=== PATIENT | female | born 1940 | race Caucasian/White ===

== ENCOUNTER 2019-11-27 12:15 | Inpatient (IN) | payer MEDICARE ==
[2019-11-27 13:42] LABS: BASOPHILS 0.3 % (0-2); HEMATOCRIT 39.6 % (36.0-48.0); HEMOGLOBIN 12.2 g/dL (12-16); IMMATURE GRANULOCYTES 0.3 % (0-5); MCH 27.3 pg (26.0-34.0); MCHC 30.8 g/dL (31.0-37.0); MCV 88.6 fL (80.0-100.0); MEAN PLATELET VOLUME 10.3 fL (7.4-10.4); MONOCYTES 5.8 % (2-11); NEUTROPHILS 52.6 % (40-80); PLATELET COUNT 176 10x3/uL (130-400); RBC 4.47 10x6/uL (4.00-5.40); RDW 15.1 % (11.5-14.5); WBC 6.2 10x3/uL (4.8-10.8)
[2019-11-27 13:48] LABS: APTT 28.2 SECONDS (22.8-39.4); INR 0.94 (0.85-1.17); PROTIME 12.5 SECONDS (11.6-15.0)
[2019-11-27 13:49] LABS: CALC OSMOLALITY 282 mosm/kg (275-300); CALCIUM 9.1 mg/dL (8.5-10.1); CHLORIDE - SERUM 105 mmol/L (98-107); CREATININE - SERUM 0.8 mg/dL (0.6-1.3); GLUCOSE 104 mg/dL (74-106); POTASSIUM - SERUM 4.5 mmol/L (3.5-5.1); SODIUM 139 mmol/L (136-145); UREA NITROGEN 27 mg/dL (7-18); eGFR NON AFRICAN AMERICAN 73 mL/min (90-120)
[2019-11-27 14:05] LABS: ALBUMIN 3.4 g/dL (3.4-5.0); ALKALINE PHOSPHATASE 101 U/L (30-120); ALT (SGPT) 33 U/L (10-68); BILIRUBIN - TOTAL 0.17 mg/dL (0.2-1.3); CREATINE KINASE 72 UL (21-215); PROTEIN - SERUM 6.7 g/dL (6.4-8.2); T4 THYROXINE 6.7 ug/dL (4.7-13.3); THYROID STIMULATING HORMONE 2.04 uIU/mL (0.36-3.74); TROPONIN-I < 0.017 ng/mL (0.000-0.060)
[2019-11-27 14:24] LABS: UDS - AMPHET NEGATIVE QUAL (NEGATIVE); UDS - BARB POSITIVE QUAL (NEGATIVE); UDS - BENZO NEGATIVE QUAL (NEGATIVE); UDS - COCAINE NEGATIVE QUAL (NEGATIVE); UDS - OPIATE NEGATIVE QUAL (NEGATIVE); UDS - PCP NEGATIVE QUAL (NEGATIVE); UDS - THC NEGATIVE QUAL (NEGATIVE)
[2019-11-27 14:26] LABS: BILIRUBIN NEGATIVE (NEGATIVE); GLUCOSE NEGATIVE (NEGATIVE); KETONE NEGATIVE (NEGATIVE); NITRITE POSITIVE (NEGATIVE); UROBILINOGEN NORMAL (NORMAL)
[2019-11-27 14:27] LABS: BACTERIA MANY /hpf (NEGATIVE); RED CELLS - URINE 0-5 /hpf (0-5); WHITE CELLS - URINE 25-50 /hpf (NEGATIVE)
[2019-11-27] MEDS ORDERED: ACETAMINOPHEN500 M1 PO (16:45)
[2019-11-27] MEDS ORDERED: ASPIRIN325 MG (16:46)
[2019-11-27] MEDS ORDERED: LIPITOR20 MG (16:55)
[2019-11-27] MEDS ORDERED: CENTRUM SILVER1 EAC3 (16:56)
[2019-11-27] MEDS ORDERED: CELEXA20 MG (16:57)
[2019-11-27] MEDS ORDERED: DONEPEZIL HCL10 MG (16:58)
[2019-11-27] MEDS ORDERED: DILTIAZEM 24HR120 M3 (16:58)
[2019-11-27] MEDS ORDERED: VIBRAMYCIN 100100 MG (17:09)
[2019-11-27] MEDS ORDERED: ZETIA10 MG (17:13)
[2019-11-27] MEDS ORDERED: SYNTHROID25 MCG (17:14)
[2019-11-27] MEDS ORDERED: METFORMIN HCL500 M1 (17:15)
[2019-11-27] MEDS ORDERED: TOPROL XL50 MG (17:15)
[2019-11-27] MEDS ORDERED: LOPRESSOR25 MG (17:16)
[2019-11-27] MEDS ORDERED: REMERON15 MG (17:16)
[2019-11-27] MEDS ORDERED: OMEPRAZOLE20 M1 (17:17)
[2019-11-27] MEDS ORDERED: MYSOLINE250 MG (17:18)
[2019-11-27] MEDS ORDERED: FLORAJEN3 CAPS460 MG (17:18)
[2019-11-27] MEDS ORDERED: ASCORBIC ACID500 MG (17:19)
[2019-11-27] MEDS ORDERED: CALTRATE+D3 PL1 EACH (17:20)
[2019-11-27] MEDS ORDERED: MELATONIN 3 MG1 TAB (17:20)
[2019-11-27 18:22] VITALS: BP 168/76; BMI 26.3
--- NOTE | 2019-11-27 18:45 | NUR ---
PATIENT ARRIVED TO UNIT FROM [facility]. PT ADMITTED DUE TO STATING SHE WAS FORGETTING THINGS, MEMORY LOSS, NIGHTMARES AND CONFUSION. VITALS SIGNS: 97.0, B/P: 168/76, P: 66, R: 18 AND 98%. WEIGHT: 148.6. PT AMBUALTES WITH A WALKER. BELONGINGS INVENTORY. NO ACUTE DISTRESS NOTED. PT DISORIENTED AND CONFUSED. PASSCODE: 1254. DIABETIC DIET.
[2019-11-27 19:07] LABS: CHOL - HDL RATIO 1.9 ratio (2.3-4.1); LDL-HDL RATIO 0.7 ratio (1.5-3.5)
[2019-11-27 20:41] VITALS: BP 150/79
--- NOTE | 2019-11-27 22:22 | NUR ---
B)RECEIVED PATIENT SITTING IN A CHAIR AT THE NURSES STATION WEARING A MASK OVER HER NOSE AND MOUTH. ORIENTED TO SELF AND HOSPITAL. RELATES SHE IS IN THE [facility] DUE TO "I'M FORGETFUL, MISPLACE THINGS AND BAD MEMORY. I GOT TRUE TO MY LAST NIGHT AND TOLD HIM THIS. ABOUT HIM OVER THE PHONE LAST NIGHT BECAUSE WHAT IS EXPECTED." ANXIOUS AND FREQUENTLY AT NURSES STATION ASKING THE SAME QUESTIONS. COOPERATIVE. I)ADMINISTER MEDS AND MONITOR COMPLIANCE. REORIENT NEEDED. R)MED COMPLIANT. ANXIOUS AND HAS A SHORT ATTENTION SPAN. DIFFICULTY RETAINING INFORMATION. P)CONTINUE POC AND PROVIDE SAFE ENVIRONMENT.
[2019-11-28 07:25] LABS: ANION GAP 10.5 mmol/L (8-16); BILIRUBIN - TOTAL 0.17 mg/dL (0.2-1.3); CALCIUM 8.2 mg/dL (8.5-10.1); CARBON DIOXIDE 28.8 mmol/L (21.0-32.0); CREATININE - SERUM 0.8 mg/dL (0.6-1.3); LDL-HDL RATIO 0.8 ratio (1.5-3.5); POTASSIUM - SERUM 4.3 mmol/L (3.5-5.1); PROTEIN - SERUM 5.5 g/dL (6.4-8.2); THYROID STIMULATING HORMONE 2.26 uIU/mL (0.36-3.74)
[2019-11-28 13:55] VITALS: Wt 68.7 kg
--- NOTE | 2019-11-28 14:30 | NUR ---
PT SITTING IN DINING ROOM AT TABLE SPEAKING WITH OTHER PEERS. PT CONFUSED AND DISORIENTED. PT TENDS TO REPEAT QUESTIONS AFTER STAFF ANSWERS QUESTIONS MOMENTS BEFORE. PT CONTS TO STATE SHE CANT TAKE THIS AND SHE WANTS TO GO HOME. PREVIOUS SHIFT REPORTED PT COULD NOT OPEN DOOR IN THE A.M. WHEN SHE OPENED THE DOOR PT STATED "I'M GOING TO KILL SOMEONE." TECH ASKED WHAT WAS WRONG AND COULD SHE HELP HER. PT STATED WELL I DONT KNOW. JUST FORGET I SAID THAT. PT IS COMPLIANT WITH MEDS, VITALS AND ASSESSMENTS. PT CAN MAKE NEEDS KNOWN. REDIRECT AND REORIENT PT NEEDED. WILL CONT PLAN OF CARE.
--- NOTE | 2019-11-28 16:10 | NUR ---
PATIENT WAS UPSET THINKING SHE WAS LEAVING CAUSE THE DOCTOR WAS HAVING A MEETING WITH HER IN THE HOSPITAL. NURSE ATTEMPTED TO EXPLAIN THAT HER WAS NOT IN THE HOSPITAL AT THIS TIME. SHE DID NOT UNDERSTAND WHY HE WAS NOT HERE. PT STATED "I'M SO NERVOUS." ATIVAN 0.5 MG PO GIVEN PER PRN ORDER. WILL CONT TO MONITOR.
--- NOTE | 2019-11-28 18:01 | NUR ---
PT PRN EFFECTIVE.
--- NOTE | 2019-11-28 22:34 | NUR ---
B) Patient is alert and oriented to self, at nurses station wanting her pocket book, demanding at times, confused, I) Administered scheduled medications as ordered, redirected as needed, R) Mediation compliant, states that she has been asking for her pocketbook for days, unaware that she arrived yesterday P) Continue plan of care.
--- NOTE | 2019-11-29 07:28 | NUR ---
PT AMBULATED TO THE DESK ASKING FOR HER WALLET. SHE STATES IT IS AT THE DESK AND I KEEP COMING UP HERE BUT THEY WONT GIVE IT TO ME." NURSE EXPLAINED HER WALLET WENT HOME WITH HER WHEN SHE ADMITTED." PT DID NOT UNDERSTAND STATING "SHE TOLD ME IT WAS LOCKED UP." NURSE PULLED INVENTORY LIST AND EXPLAINED ONLY THING IN LOCKUP IS HER SUITCASE. SHE WALKED BACK TO HER ROOM. PREVIOUS SHIFT REPORTED SHE WAS CONFUSED AND LOOKING FOR HER POCKETBOOK. PT CAN MAKE SOME NEEDS KNOWN. CONFUSED AND DISORIENTED. ALERT TO SELF ONLY. REDIRECT AND REORIENT PT NEEDED. POOR INSIGHT NOTED TO SITUATION. AMBULATES WITH WALKER. PT IS UNAWARE SHE ADMITTED DAY BEFORE YESTERDAY.
--- NOTE | 2019-11-29 10:33 | NUR ---
SPOKE WITH MR. WATTS. PASSCODE GIVEN. HE WANTED TO KNOW HOW SHE WAS DOING AT THIS TIME. NURSE EXPLAINED THIS MORNING SHE WAS LOOKING FOR HER POCKETBOOK AND COULDNT FIND IT. NURSE WENT OVER INVENTORY SHEET AND SHE DID NOT BRING IT. HER TOOK IT HOME WITH HIM. HE WANTED TO BE SURE THAT HE UNDERSTOOD THAT IT WOULD BE BETTER NOT TO CALL HER UNTIL MONDAY. NURSE EXPLAINED YES THAT IS CORRECT. CALLING MAKES HER UPSET AND ANXIOUS BECAUSE SHE THINKS IF SHE TALKS TO HIM THEN SHE CAN GO HOME. SO HE UNDERSTOOD THE REASON WHY NOT TO CALL OVER THE WEEKEND. HE SAID HE WOULD CALL BACK AND CHECK WITH STAFF LATER. THANKED NURSE.
[2019-11-29 11:05] VITALS: BP 132/66
--- NOTE | 2019-11-29 16:40 | NUR ---
SPOKE WITH MR. WATTS ABOUT PT ROOM NUMBER. HE WANTED TO BE SURE THAT SHE WAS STILL IN THE SAME ROOM. NURSE STATED THAT WAS THE CORRECT ROOM. HE ALSO STATED THAT HE WOULD BRING HER LIVING WILL PAPERWORK. HE WANTED THE PAPERWORK COPIED AND GIVEN BACK. NURSE STATED WE WOULD KEEP THE COPIES.
[2019-11-29 20:00] VITALS: BP 116/65; BP 96/57
--- NOTE | 2019-11-29 21:12 | NUR ---
B.) PT IS ALERT AND ORIENTED TO SELF AND SITUATION. SHE IS CALM AND COOPERATIVE WITH STAFF. SHE IS RECEIVED IN HER ROOM. SHE IS SELF ISOLATING AT TIMES. SHE DENIES ANY WANTS OR NEEDS AT THIS TIME. I.) PROVIDED PM MEDICATIONS PRESCRIBED. REDIRECT NEEDED. R.) COMPLIANT WITH ALL MEDICATIONS. EASY TO REDIRECT. P.) WILL CONTINUE TO MONITOR.
[2019-11-30 08:07] VITALS: BP 134/71
--- NOTE | 2019-11-30 09:47 | NUR ---
The patient is awake and oriented to person and place, she has poor insight into her situation. She said she did not have nightmares last night, but she said she thought she heard a baby crying. The plant tour guide explained to her that it was not a child it was another patient on the floor. She asked how long she would be here. Explained to her that she will be here seven to fourteen days. She said "Oh, I was told seven to ten days." Provide prescribed meds. The patient is compliant with meds. Continue POC.
[2019-11-30 10:13] VITALS: BP 134/71
--- NOTE | 2019-11-30 15:03 | NUR ---
Called the patient's spouse and asked him to bring poise pads per patient request. He brought her chocolates and explained to him that she is not allowed to have outside food or drinks.
--- NOTE | 2019-11-30 16:40 | NUR ---
The patient approached for the third time and asked "How long will I be here?" Explained again that "It is usually seven to fourteen days." She said "Oh, I was told seven to ten days." She became focused on the additional four days. Explained to her that it is in between seven and fourteen days. Asked her why she came here and she said "Well, my wants me to be here, I guess," Spoke with her for about twenty minutes and she said "Well, I am trying my best, I'm trying to be good, I just want to go home, I'd rather be home." After speaking with her it became apparent that she gets focused on something and then she thinks about it over and over. She is compulsive and she said she was surrounded by people that are sick. She is quite concerned about others germs and ed an illness. Explained to her that the other patients are not sick, they have allergies. Also looked in her room and all of her clothes are neat as a pin, her room is exact. Offered her an ativan she said she was reluctant to take any medication. Explained to her that the medication will take the edge off and she will be able to relax a little. The patient also has some forgetfulness as she repeats herself over and over not realizing. Asked her if she has heard of dementia or alzheimers. She said "Well, I have heard the word, but not in reference to myself." Explained to her that "We as the staff are monitoring her and she will see the nurse practitioners, and the Dr.'s" She said "Yes, but I'd prefer to see my own Dr." After speaking with at great length she settled and she chose to take an ativan. Asked her to give us a few days and we can help her with her situation. She said "Ok."
--- NOTE | 2019-11-30 16:49 | NUR ---
Ativan 0.5 mg po given now, will monitor. Explained to the patient that the medication may make her a little woozy, so we ask that she not try to stand up at first unless stand were standing by her. She agreed and asked me to come by her every time I saw her and tell her it's ok and to pat her shoulder. Told her that "We are here to support her."
--- NOTE | 2019-11-30 17:45 | NUR ---
The patient is still asking staff "What time is it?" Every few minutes and she is at the nurses station asking a million questions over and over. She asked if she can walk in the hallway, told her yes, then she asked if she could sit in the hallway, told her yes.
--- NOTE | 2019-11-30 20:48 | NUR ---
B.) PT IS ALERT AND ORIENTED X4. SHE IS DISTRESSED ABOUT NOT BEING ABLE TO SPEAK WITH HER . SHE REQUESTED THAT WE LET THE DAYSHIFT KNOW SHE WOULD LIKE TO SPEAK WITH HER OR DAUGHTER QUINN. SHE IS TEARFUL AND RESTLESS. I.) PROVIDED PM MEDICATIONS PRESCRIBED AND PRN 0.5MG ATIVAN PO. REDIRECT NEEDED. R.) COMPLIANT WITH ALL MEDICATIONS. EASY TO REDIRECT. P.) WILL CONTINUE TO MONITOR
--- NOTE | 2019-11-30 21:20 | NUR ---
PT IS RESTING CALMLY IN BED WITH EYES CLOSED. NO SIGNS OF DISTRESS NOTED. WILL CONTINUE TO MONITOR.
[2019-12-01 05:17] VITALS: BP 133/73
--- NOTE | 2019-12-01 08:06 | NUR ---
The patient is anxious, she keeps asking to call the police and she is worried and concerned about being here. Spoke to her and let her know she is in the hospital and changed the subject and let her know that I brought her some things to color today and she began talking to others about it, but because she worries and gets upset. Ativan 0.5 mg po provided. Redirect as needed. Continue POC.
[2019-12-01 08:24] VITALS: BP 133/80
--- NOTE | 2019-12-01 09:00 | NUR ---
The patient is calm she is conversing with staff and other patients, she is not groggy.
--- NOTE | 2019-12-01 10:00 | NUR ---
The patient's spouse brought her poise pads. Gave her a pad and put a few in her room on her bed then put the others at the nurses station.
--- NOTE | 2019-12-01 10:31 | NUR ---
The patient is coloring and having a snack.
--- NOTE | 2019-12-01 14:55 | NUR ---
The patient is beginning to get more confused and escalating and asking the same question over and over and not following the conversation. Provide Ativan 0.5 mg po, will monitor his mood.
--- NOTE | 2019-12-01 18:52 | NUR ---
REECIVED IN BEDROOM. RESTING QUIETLY WITH EYES CLOSED. RESPONDS TO VOICE. CALM AND COOPERATIVE WITH CARE AND ASSESSMENT. ENCOURAGE TO EXPRESS NEEDS. CONTINUES TO REST QUIETLY IN BEDROOM. CONTINUE PLAN OF CARE.
[2019-12-01 18:55] VITALS: BP 130/65
[2019-12-02 08:29] VITALS: BP 116/70
--- NOTE | 2019-12-02 12:00 | NUR ---
RECEIVED IN HALLWAY OUTSIDE OF NURSES STATION. CALM AND COOPERATIVE WITH CARE AND ASSESSMENT. FORGETFUL. REDIRECT AND REORIENT NEEDED. EATING AT THIS TIME. CONTINUE PLAN OF CARE.
--- NOTE | 2019-12-02 13:26 | PSY ---
PATIENT NAME:ADELIA WATTS MEDICAL RECORD: [id number] : 36 LOCATION:[facility] ADMISSION DATE: 11/27/19 ACCOUNT: [id number] PSYCHIATRIC EVALUATION DATE OF EVALUATION: 11/28/19 IDENTIFYING DATA: The patient is 78 years old and she is admitted to the hospital on a voluntary basis. CHIEF COMPLAINT: Confusion and hallucinations. HISTORY OF PRESENT ILLNESS: The patient is a very nice elderly woman who presented to the Emergency Room in the company of her . He reports that she has been confused, agitated, and actively hallucinating. The patient is oriented partially, but clearly quite confused. She is denying hallucinations and says that she has had no agitation with her . She also has clear evidence of significant short-term memory loss. She denies that she would seek to harm herself or others. PAST MEDICAL HISTORY: Significant for stroke, diabetes, hypertension, atrial fibrillation, osteoporosis and probable urinary tract infection present on admission. PAST PSYCHIATRIC HISTORY: Unknown. She says she has never been diagnosed with a dementia, yet she is taking Aricept. She minimizes her situation, saying that she just has short-term memory loss that is normal for her age. FAMILY HISTORY: Significant for hypertension. ALLERGIES: MACROBID. CURRENT MEDICATIONS: Include calcium, melatonin, aspirin, Mysoline, Remeron, Lopressor, Toprol, Glucophage, Synthroid, Zetia, Vibramycin, Aricept, Celexa, Lipitor, and aspirin. SOCIAL HISTORY: The patient is and has been to the same man for 60 years. She has 2 adult children who are stable and successful. She has no history of drug or alcohol abuse. She has 2 years of college and was a homemaker housewife. MENTAL STATUS EXAMINATION: The patient is awake, alert and oriented to person and place, but not to time or situation. Her mood is anxious. Her affect is constricted. Thought processes are circumstantial. Memory, concentration, and abstraction abilities are moderately impaired and she denies any intent to harm herself or others as well as overt psychotic symptoms. ASSETS: Supportive family members. LIABILITIES: Limited insight. DIAGNOSTIC IMPRESSION: AXIS I: Vascular dementia. AXIS II: None. AXIS III: Hypertension, atrial fibrillation, diabetes, hyperlipidemia, hypothyroidism, osteoporosis, gastroesophageal reflux disease, urinary tract infection and hypothyroidism. AXIS IV: Moderate. AXIS V: Global assessment of functioning is 30. PLAN: At this time, the patient is admitted to the hospital secondary to confusion, agitation and possibly psychotic symptoms associated with a dementing illness. She will be comprehensively evaluated from both a medical, psychological, and social standpoint. She will be treated with both mood stabilizing and memory enhancing medications. TRANSINT:[id number] Voice Confirmation ID: [id number] DOCUMENT ID: [id number] ASHER LAGOS MD at 1326 CC: [id number] DICTATION DATE: 11/28/19 1515 CHARGE ENTRY: 11/28/19 1527 ADM IN [place] [id number] [place] [id number]
--- NOTE | 2019-12-02 13:54 | NUR ---
Nutrition Follow-up: Overall good/fair PO intake. Diet: Diabetic PO intake: 79% avg x 9 meals Wt: 147# (11/30); 148# (11/26) Last BM: 11/29 Labs noted: Glu 106 Meds noted: vitamin C, vitamin D, Oscal, Protonix, Glucophage, Senokot -Encourage PO intake and honor food preferences within diet restrictions. -Offer Glucerna with meals. -Monitor wt. -RD following.
--- NOTE | 2019-12-02 19:14 | NUR ---
RECEIVED IN DAYROOM. SITTING IN CHAIR WITH PEERS AT HER SIDE. CALM AND COOPERATIVE WITH CARE AND ASSESSMENT. ENCOURAGE TO EXPRESS NEEDS. REDIRECT AND REORIENT NEEDED. CONTINUES TO SIT CALMLY. CONTINUE PLAN OF CARE.
[2019-12-02 19:17] VITALS: BP 116/65
--- NOTE | 2019-12-03 00:56 | NUR ---
HEARING A MARVIN VOICE TALKING ABOUT HER DAUGHTER. FEARFUL OF HER DAUGHTERS SAFETY. REDIRECT AND REORIENT. ALLOW TIME TO EXPRESS FEELINGS.
[2019-12-03 07:59] VITALS: BP 116/68
--- NOTE | 2019-12-03 10:28 | PN ---
PATIENT:ADELIA WATTS MEDICAL RECORD: [id number] LOCATION:[facility] ADMISSION DATE: 11/27/19 PROGRESS NOTE DATE OF SERVICE: 12/02/2019 SUBJECTIVE: The patient's case was discussed with staff. She has no new complaint. OBJECTIVE: The patient is only partially oriented. She is anxious and showing a high degree of emotional distress. She is not particularly redirectable. She is participating in treatment. ASSESSMENT: Dementia. PLAN: Current medicines have been reviewed and will be maintained. Long-term prognosis is guarded. TRANSINT:[id number] Voice Confirmation ID: [id number] DOCUMENT ID: [id number] ASHER LAGOS MD at 1028 CC: [id number] DICTATION DATE: 12/02/19 1530 COACH CLEANER: 12/02/[address] [facility] [address] [place] [address]
[2019-12-03] MEDS ORDERED: ASPIRIN81 MG PO (10:32)
[2019-12-03] MEDS ORDERED: LEVOFLOXACIN500 MG PO (10:32)
[2019-12-03] MEDS ORDERED: PROTONIX40 MG PO (10:33)
[2019-12-03] MEDS ORDERED: MYSOLINE 50 MG50 MG PO (10:33)
[2019-12-03] MEDS ORDERED: Senokot TAB PO (10:33)
--- NOTE | 2019-12-03 10:47 | NUR ---
RAYMOND SPOKE WITH , KIKE, TO DISCUSS DISCHARGE PLANNING FOR TOMORROW. PT'S STATED HE WOULD COME PICK HER UP AT 11. PT HAS FOLLOW UP APPOINTMENT WITH FRANCISCO KAYE APRN ON 12/22 AT 1115AM. PT WAS ALSO REFERRED TO THE CARING PLACE. RAYMOND EDUCATED MR WATTS ON DEMENTIA, DISEASE PROGRESSION, COMMUNICATION TIPS, STRUCTURE NEEDED FOR PT, CARING PLACE, WRITING REMINDERS FOR PT TO READ WHEN SHE STARTS ASKING THE SAME QUESTIONS, COPING SKILLS, AND CAREGIVING STRESS SIGNS AND SYMPTOMS. MR. WATTS VERBALIZED UNDERSTANDING OF DISCUSSION AND DISCHARGE PLANS.
--- NOTE | 2019-12-03 11:15 | NUR ---
RECEIVED IN HALLWAY OUTSIDE OF NURSES STATION. CALM AND COOPERATIVE WITH CARE AND ASSESSMENT. FORGETFUL. NO BEHAVIOR ISSUES. REDIRECT AND REORIENT NEEDED. PARTICIPATING IN GROUPS AT THIS TIME. CONTINUE PLAN OF CARE.
--- NOTE | 2019-12-03 19:55 | NUR ---
RECEIVED IN DAYROOM. RESTING IN A CHAIR WITH PEERS AT HER SIDE. CALM AND COOPERATIVE WITH CARE AND ASSESSMENT. ENCOURAGE TO EXPRESS NEEDS. IN ROOM GETTING READY FOR BED AT THIS TIME. CONTINUE PLAN OF CARE.
[2019-12-03 21:00] VITALS: BP 129/72
[2019-12-04 09:04] VITALS: BP 140/64
--- NOTE | 2019-12-04 09:39 | PN ---
PATIENT:ADELIA WATTS MEDICAL RECORD: [id number] LOCATION:[facility] ADMISSION DATE: 11/27/19 PROGRESS NOTE DATE OF SERVICE: 12/03/2019 SUBJECTIVE: The patient's case was discussed with staff. She has no new complaint. OBJECTIVE: The patient is impaired cognitively, but in good behavioral control. She has limited insight about her situation. ASSESSMENT: Dementia. PLAN: The patient will be maintained on current medications. I anticipate she could be transitioned out of the hospital soon if this level of improvement is maintained. Arrangements need to be made with her for her to return home and that will probably not take place until tomorrow. TRANSINT:[id number] Voice Confirmation ID: [id number] DOCUMENT ID: [id number] ASHER LAGOS MD at 0939 CC: [id number] DICTATION DATE: 12/03/19 1304 MULTIPLE WIRE SAWYER: 12/03/19 1713 ADM IN [facility] [address] [place] [address]
--- NOTE | 2019-12-04 11:22 | NUR ---
PATIENT DISCHARGED HOME WITH . PAPERWORK FAXED TO PCP. HARDCOPY SENT WITH PATIENT. DISCHARGE PAPERWORK AND DISCHARGE MEDICATIONS REVIEWED WITH PATIENT AND SPOUSE. PERSONAL BELONGING SENT HOME WITH PATIENT. MEDICATIONS SENT ELECTRONICALLY TO PHARMACY.
--- NOTE | 2019-12-05 13:01 | DS ---
PATIENT:ADELIA WATTS :36 MEDICAL RECORD: [id number] DISCHARGE SUMMARY ADMISSION DATE: 11/27/19 DISCHARGE DATE: 12/04/19 IDENTIFYING DATA: The patient is 78 years old and she is admitted to the hospital on a voluntary basis. CHIEF COMPLAINT: Confusion and hallucinations. HISTORY OF PRESENT ILLNESS: The patient is an elderly woman, who presented to the Emergency Room with her . He reported that she had been confused, agitated, and actively hallucinating. The patient was partially oriented and clearly confused. She denied hallucinations and denied agitation. She was admitted to the hospital for evaluation of these symptoms. HOSPITAL COURSE: The patient was admitted to the hospital and comprehensively evaluated from both a medical, psychological, and social standpoint. She was found to have a vascular dementia and she was treated with both mood stabilizing and memory enhancing medications. She showed improvement through the course of her hospitalization and was subsequently discharged home. DISCHARGE DIAGNOSES: AXIS I: Vascular dementia. AXIS II: None. AXIS III: Hypertension, atrial fibrillation, diabetes, hyperlipidemia, osteoporosis, gastroesophageal reflux disease, community-acquired urinary tract infection, and hypothyroidism. AXIS IV: Moderate. AXIS V: Global assessment of functioning 40. PLAN: At the time of discharge, the patient was not having any agitation or active hallucinations. Her cognition was impaired, but better than on admission. I attribute this to the treatment of the underlying urinary tract infection. She was not dangerous to herself or others. Her was going to provide 09-[id number]-[id number]-day supervision. Her long-term prognosis is guarded. Followup is to be with her primary care physician. TRANSINT:[id number] Voice Confirmation ID: [id number] DOCUMENT ID: [id number] ASHER LAGOS MD at 1301 CC: [id number] DICTATION DATE: 12/04/19 1629 DECKHAND SPONGE BOAT: 12/05/19 0716 DIS IN 12/04/19 [facility] [address] [place] [address]
== END 2019-12-04 11:25 | disposition home or self-care (01) | DRG 57 ==
LOC: D.ER 12:15 → D.PSYCH 15:29
PROVIDERS: Family Medicine; ADMIT Psychiatry & Neurology Psychiatry; ATTEND Psychiatry & Neurology Psychiatry
DX: I69.319 Unspecified symptoms and signs involving cognitive functions following cerebral infarction (principal); F01.51 Vascular dementia, unspecified severity, with behavioral disturbance; N39.0 Urinary tract infection, site not specified; I10 Essential (primary) hypertension; I48.91 Unspecified atrial fibrillation; E11.8 Type 2 diabetes mellitus with unspecified complications; E78.2 Mixed hyperlipidemia; F41.8 Other specified anxiety disorders; E03.8 Other specified hypothyroidism; K21.9 Gastro-esophageal reflux disease without esophagitis; M81.0 Age-related osteoporosis without current pathological fracture; B96.1 Klebsiella pneumoniae [K. pneumoniae] as the cause of diseases classified elsewhere